=== PATIENT | female | born 1940 | race Caucasian/White ===

== ENCOUNTER → 2016-09-17 | Outpatient (CLI) | payer MEDICARE, OTHER ==
--- NOTE | 2016-09-18 09:40 | US ---
EXAM DESCRIPTION: Carotid Duplex CLINICAL HISTORY: DIZZY COMPARISON: None Available. TECHNIQUE: Carotid Doppler ultrasound. Matute scale, color Doppler, and spectral pulse Doppler evaluation was performed FINDINGS: Bilateral examination demonstrates intimal thickening and echogenic and calcified plaque in the distal common carotid artery on the right. The area stenosis is measured at 28% proximal to the carotid bifurcation. Peak right CCA velocities are present proximally at 43/9 cm/s with peak ICA velocities of 67/19 cm/s. Antegrade flow in the vertebral and external carotid artery on the right is noted. On the left, mild soft plaque and intimal thickening within a tortuous common carotid artery is present without significant stenosis at the carotid bifurcation. Peak CCA velocities are 61/13 cm/s with peak ICA velocities distally of 68/21 cm/s. The ICA/CCA ratio is normal at 1.1. Antegrade flow in the vertebral and external carotid artery is present. IMPRESSION: Mild bilateral intimal thickening and surface plaque with mild focal plaque in the distal right common carotid artery without hemodynamically significant stenosis on either side. Antegrade flow both vertebral arteries. Electronically signed by: Dwight Martin MD 09/18/2016 9:39 AM CDT
== END | disposition home or self-care (01) ==
LOC: US 10:08
PROVIDERS: ATTEND Internal Medicine Interventional Cardiology
DX: R55 Syncope and collapse (principal); R09.89 Other specified symptoms and signs involving the circulatory and respiratory systems; R42 Dizziness and giddiness